=== PATIENT | female | born 1995 | race Caucasian/White ===

== ENCOUNTER 2018-03-19 12:41 | Day surgery (SDC) | payer SELFPAY ==
[2018-03-19 13:14] VITALS: BMI 19.3
[2018-03-19 14:10] LABS: Bilirubin Negative (Negative); Blood, Urine Negative (Negative); Clarity CLEAR (Clear); Glucose, Urine (Dipstick) Negative (Negative); Leukocyte Trace (Negative); Nitrite Negative (Negative); Protein, Urine (Dipstick) Negative (Neg-Trace); Specific Gravity, Urine 1.006 (1.002-1.036); Urobilinogen 0.2 mg/dL (0.2-1.0)
[2018-03-19 14:12] LABS: Bacteria/HPF None Seen HPF (None Seen); Hyaline Casts/LPF 0-3 HYALINE CAST LPF (0-3 Hyaline); Pathc Cast-AUWi Flag 0.14 (0-2.49); RBC/HPF 0-3 HPF (0-3); Squamous Epithelial 0-3 HPF (0-3); WBC/HPF 0-3 HPF (0-3)
[2018-03-19] MEDS ORDERED: Acetaminophen 500 MG TAB PO SCH (15:15)
--- NOTE | 2018-03-19 22:21 | SS ---
DATE OF EVALUATION: 03/19/2018 LABOR AND DELIVERY TRIAGE NOTE EVALUATING PHYSICIAN: Kevin Good MD CHIEF COMPLAINT: Lower abdominal cramping with pain extending into her legs, occasional discomfort w ith urination. HISTORY OF PRESENT ILLNESS: Ms. Phil Chou is a 22-year-old white G2, P0, AB1 with a reported hermelindo mated date of confinement of 07/09/2018, presents stating that she has been traveling heavily over last 3 days. Over the last 24 hours, she has noticed intermittent cramping, but states that the pa in radiates into both legs. She also reports intermittent burning with urination. She denies ruptur ed membranes or vaginal bleeding. She has had care in [place]. She states she had an ultrasound 3 or 4 weeks ago that was no rmal. PAST MEDICAL HISTORY: None. PAST SURGICAL HISTORY: D&C for a miscarriage at a reported 15 weeks. CURRENT MEDICATIONS: vitamins and calcium. ALLERGIES: No known allergies. SOCIAL HISTORY: Denies tobacco, alcohol, or drug use. FAMILY HISTORY: Unremarkable. REVIEW OF SYSTEMS: Positive for dysuria. Negative for fever, chills, nausea, vomiting, vaginal blee ding, or ruptured membranes. PHYSICAL EXAMINATION: VITAL SIGNS: Stable and she is afebrile. ABDOMEN: Soft, gravid, and nontender. There is no guarding or rebound. heart tones are stabl e and there are no significant contractions seen. Her cervix is posterior, closed, and long. LABORATORY DATA: Urinalysis shows a specific gravity of 1.006 with negative protein, negative glucos e, negative ketones, negative blood, negative nitrites, negative bilirubin, and trace leukocyte tony ase. Microscopic shows 0-3 rbc's, 0-3 wbc's, and no bacteria seen. VPIII testing is completely nega tive. ASSESSMENT: 1. 24-week intrauterine . 2. No evidence of labor or urinary tract infection. 3. Suspected round ligament pain. PLAN: The patient has been given complete precautions. She states that she has an appointment back in [place] with her provider in 1 week. She voices understanding of her discharge instructions and is sent home in good condition.
== END 2018-03-19 15:25 | disposition home or self-care (01) ==
LOC: L&D/OP 12:41
PROVIDERS: ATTEND Obstetrics & Gynecology
DX: O99.89 Other specified diseases and conditions complicating pregnancy, childbirth and the puerperium (principal); R10.30 Lower abdominal pain, unspecified; Z3A.24 24 weeks gestation of pregnancy; Z79.899 Other long term (current) drug therapy
CPT/HCPCS: 81003; 81015; 87480; 87510; 87660; 99283